=== PATIENT | female | born 2000 | race Caucasian/White ===

== ENCOUNTER 2021-07-11 09:11 | Emergency (ER) | payer BC, MEDICAID, SELFPAY ==
[2021-07-11 09:20] VITALS: BP 123/65; PULSE 81; RESP 18; TEMP 37; O2SAT 100; BMI 23.7
--- NOTE | 2021-07-11 10:37 | ED.SKABFB ---
HPI - Skin/Abscess/Foreign Bdy General Chief complaint: Skin/Abscess/Foreign Body Stated complaint: wart on finger Time Seen by Provider: 07/11/21 10:34 Source: patient Mode of arrival: ambulatory Limitations: no limitations History of Present Illness complaint: other (Wart to left hand index finger) Onset (ago): month(s) Tetanus up to date: unsure Location: L hand (Index finger) Pain Consistency: constant Relieving factors: none Exacerbating factors: none Context: none Associated symptoms: denies other symptoms Treatments prior to arrival: other (She reports she has tried multiple [id number] medication no symptomatic relief) Related Data Previous Rx's Medication Instructions Recorded salicylic acid 40 % topical patch 1 appl TOPICAL Q48H #25 ea 07/11/21 Allergies Allergy/AdvReac Type Severity Reaction Status Date / Time Penicillins [PCN] Allergy Unknown HIVES Unverified 07/08/20 19:53 Review of Systems Review of Systems: Constitutional : No Weight loss, No Fever, No Chills, No Night Sweats, No Fatigue, No Malaise ENT/Mouth : No Hearing loss, No Ear Pain, No Nasal Congestion, No Sinus Pain, No Hoarseness, No sore throat, No Rhinorrhea, No Swallowing Difficulty Eyes: No Eye Pain, No Swelling, No Redness, No Foreign Body, No Discharge, No Vision Changes Cardiovascular : No Chest Pain, No SOB, No Dyspnea on Exertion, No Orthopnea, No Edema, No Palpitations Respiratory : No Cough, No Sputum, No Wheezing, No Smoke Exposure, No Dyspnea Gastrointestinal : No Nausea, No Vomiting, No Diarrhea, No Constipation, No abdominal Pain, No Hematochezia, No Melena Genitourinary : no irregular bleeding, No Dysuria, No Urinary Frequency, No Hematuria, No Urinary Incontinence, No Urgency, No Flank Pain, No Urinary Flow Changes, No Hesitancy Musculoskeletal : No joint pain, No Myalgias, No Joint Swelling Skin : Positive skin lesion/wart, No rash Neuro : No Weakness, No Numbness, No Paresthesias, No Loss of Consciousness, No Dizziness, No Headache Psych : No Anxiety/Panic, No Depression, No SI/HI/AH/VH, No Social Issues, Heme/Lymph: No Bruising, No Bleeding,No Lymphadenopathy Endocrine : No Polyuria, No Polydipsia, No Temperature Intolerance Yes all other systems are reviewed and are negative [facility] Past Medical History Attestation statement: The following information was validated with the patient. Medical History No known health problems Social History Social History Advance Directives: No Advance Directives Information Provided: No Patient : No Physical Exam Vital Signs: Vital Signs: Last Vital Signs Temp 98.6 F 07/11/21 09:20 Pulse 81 07/11/21 09:20 Resp 18 07/11/21 09:20 BP 123/65 07/11/21 09:20 Pulse Ox 100 07/11/21 09:20 Body Mass Index 23.7 vital signs have been reviewed as normal and appeared to be correct. Blood pressure normal. Heart rate normal. Respiration rate normal. Temperature normal. Oxygen saturation normal. Appearance: Alert. Oriented X3. No acute distress. Head: Normal external exam. Normocephalic. Atraumatic. Eyes: PERRLA. EOMI. Conjunctiva and sclera normal. Eyelids normal. ENT: . Pharynx normal. Uvula midline. Moist mucous membranes. Neck: Normal inspection. Neck supple. FROM. CVS: Normal heart rate and rhythm. Respiratory: No respiratory distress. Painless inspiration. Back: Full range of motion noted. No rashes/lesion/induration/fluctuance or signs of infection noted. Skin: Skin warm and dry. Normal skin color. Normal skin turgor. No rashes/additional lesions only her wart that is in her left hand index finger noted. Extremities: Patient with warts to left hand index finger at the distal aspect no signs of infection. No purulent drainage noted. Extremities exhibit normal range of motion. Extremities nontender. Neuro: Oriented X 3. No motor deficit. No sensory deficit. Reflexes normal. Normal steady gait. No focal neuro deficits noted. Vascular: + radial pulses/+ 2 distal pedal pulses/+2 dorsalis pedis b/l. Normal cap refill. No cyanosis noted to upper extremity nails and lower extremity toes nails. Course Course Course Narrative: Patient with wart 2 left hand index finger distal aspect she has been trying multiple [id number]-[id number] medications over the past months and no symptomatic relief. Reports that she is currently here studying from [place] she does not have a primary care provider. Denies any other symptoms complaints or concerns at this time. On exam patient does have a wart no signs of infection. Will DC home with multiple PCP referral/numbers that she can contact and treatment for warts instructions return if any new or worsening symptoms. Patient understands agrees with this plan. MDM - Skin/Abscess/Foreign Bdy Medical Records Attestation: I reviewed the patient's medical records. Discharge Plan Discharge Clinical Impression: Viral wart on finger Patient Disposition: Home, Self-Care Instructions: Common Wart (ED) Prescriptions: New salicylic acid 40 % adhesive patch,medicated 1 appl topical Q48H Qty: 25 RF: 3 Referrals: [facility] [Provider Group] - 2 days [facility] [Provider Group] - 2 days [facility] [place] [facility] [Provider Group] - 2 days [facility] [Provider Group] - 2 days [facility] [place] [facility] [Provider Group] - 2 days Print Language: Andorran
== END 2021-07-11 10:51 | disposition home or self-care (01) ==
PROVIDERS: Emergency Provider Emergency Medicine Emergency Medical Services
DX: B07.9 Viral wart, unspecified (principal); Z79.899 Other long term (current) drug therapy
CPT/HCPCS: 99283

== ENCOUNTER 2021-08-29 11:53 | Emergency (ER) | payer BC, MEDICAID, SELFPAY ==
[2021-08-29 12:06] VITALS: BP 111/68; PULSE 89; RESP 16; TEMP 36.8; O2SAT 100; BMI 23.0
--- NOTE | 2021-08-29 13:51 | ED_ITS ---
HPI - General Adult General Chief complaint: General Medical Stated complaint: breast pain Time Seen by Provider: 08/29/21 13:49 Source: patient Mode of arrival: ambulatory Limitations: no limitations History of Present Illness HPI narrative: 20-year-old female came in for right breast pain evaluation. Pain started in the right breast about 2 weeks ago, progressively getting worse, pain is constant, described as moderate 5/10, nothing worsening the pain, nothing make it better, no other associated symptoms, no recent trauma to the breast, no family history of breast cancer or ovarian cancer, patient is taking contraceptive pills for contraception. No fever or chills. Related Data Previous Rx's Medication Instructions Recorded salicylic acid 40 % topical patch 1 appl TOPICAL Q48H #25 ea 07/11/21 Allergies Allergy/AdvReac Type Severity Reaction Status Date / Time Penicillins [PCN] Allergy Unknown HIVES Unverified 07/08/20 19:53 Review of Systems Review of Systems: All other systems are reviewed and are negative Constitutional: Reports as per HPI and Reports no additional constitutional complaints Eyes: Reports as per HPI and Reports no additional eye complaints Reports system reviewed and no additional complaints, except as documented Cardiovascular: Reports as per HPI and Reports no additional cardiovascular complaints Respiratory: Reports as per HPI and Reports no additional respiratory complaints Gastrointestinal: Reports as per HPI and Reports no additional gastrointestinal complaints Genitourinary: Reports no additional female genitourinary complaints Musculoskeletal: Reports no additional musculoskeletal complaints Skin/Breast: Reports system reviewed and no additional complaints, except as docu Psychiatric: Reports no additional psychiatric complaints Endocrine: Reports no additional endocrine complaints Hematologic/Lymphatic: Reports no additional hematologic/lymphatic complaints Allergic/Immunologic: Reports no additional allergic/immunologic complaints Reports system reviewed and no additional complaints, except as documented and Reports Abnormal speech present [facility] Past Medical History Medical History No known health problems Physical Exam Vital Signs: Vital Signs: Last Vital Signs Temp 98.2 F 08/29/21 12:06 Pulse 89 08/29/21 12:06 Resp 16 08/29/21 12:06 BP 111/68 08/29/21 12:06 Pulse Ox 100 08/29/21 12:06 Body Mass Index 23.0 Vital signs have been reviewed as appeared to be correct. Blood pressure normal. Heart rate normal. Respiration rate normal. Temperature normal. Oxygen saturation normal. Appearance: Alert. Oriented X3. No acute distress. Head: Normal external exam. Normocephalic. Atraumatic. No Garcia signs noted. No raccoon eyes noted Eyes: PERRLA. EOMI. Conjunctiva and sclera normal. Eyelids normal. ENT: TM's Normal. Pharynx normal. Uvula midline. Moist mucous membranes. No trismus noted. No drooling noted. No muffled voice noted. Neck: Normal inspection. Neck supple. FROM. No adenopathy. Thyroid Normal. No meningeal signs. No neck mass noted. CVS: Normal heart rate and rhythm. Heart sound normal. No murmurs noted. Pulses normal throughout. Respiratory: No respiratory distress. Painless inspiration. Breath sounds normal. No wheezes/rales/rhonchi noted. Chest nontender. No accessory muscle usage noted or decreased air movement noted. Breast exam: 2x2 cm cystic lesion on 11 O'clock are of right breast, tender and mobile, with no fluctuation. No lymph node is appreciated. Abdomen: Soft and nontender. Bowel sounds normal in all 4 quadrants. No distention noted. No organomegaly noted. No visible injury noted. Back: No CVA tenderness. Full range of motion noted. Skin: Skin warm and dry. Normal skin color. Normal skin turgor. No rashes/lesions/lacerations noted. Extremities: No lower extremity edema. Extremities exhibit normal range of motion. Extremities nontender. Neuro: Oriented X 3. Cranial nerve exam: II-XII are grossly intact No motor deficit. No sensory deficit. Reflexes normal. Course Course Course Narrative: 20-year-old female who does not have a primary doctor came in with right breast mass, unable to get breast ultrasound/mammogram from the emergency room, patient needs to find PCP to follow-up on this new right breast mass. Patient was given phone numbers for PCPs to contact from today. Discharge Plan Discharge Clinical Impression: Breast lump or mass Patient Disposition: Home, Self-Care Instructions: Breast Mass (ED) Additional Instructions: Call Adult primary care at [phone]. Call Family Medicine [phone] and make an appointment. Or call [phone] and make an appointment. Or try walk-in clinic at [phone] or Another walking clinic at [phone]. Prescriptions: No Action salicylic acid 40 % adhesive patch,medicated 1 appl topical Q48H Qty: 25 RF: 3 Referrals: Physician,None [Primary Care Provider] - 2 days Stand Alone Forms: Work/School Release Interventions: ED Discharge Assessment Last Done: 08/29/21 14:06 Discharge Date/Time: 08/29/21 14:16
--- NOTE | 2021-08-29 13:59 | PC.NURSE ---
this rn was present for breast exam. pt tolerated procedure well.
--- NOTE | 2021-08-29 14:05 | PC.NURSE ---
pt c/o lump under the skin to right breast at 10:00.
== END 2021-08-29 14:16 | disposition home or self-care (01) ==
PROVIDERS: Emergency Provider Emergency Medicine
DX: N64.4 Mastodynia (principal); N63.10 Unspecified lump in the right breast, unspecified quadrant
CPT/HCPCS: 99283

== ENCOUNTER 2021-08-29 15:10 | Outpatient (REF) | payer BC, MEDICAID, SELFPAY ==
--- NOTE | ~2021-08-29 | US_ITS ---
EXAMINATION: US DIAGNOSTIC ULTRASOUND BREAST, RIGHT CLINICAL INFORMATION: Pain lateral right breast noted by patient past 2 weeks. Palpable fullness noted at clinical exam, emergency department today. No discharge. No known family history breast cancer. Patient age 20. No prior breast imaging. COMPARISON: None. TECHNIQUE: Ultrasound right breast is targeted to the area of clinical concern outer quadrant. Patient is able to point to the area of concern at time of imaging. Grayscale imaging and color Doppler are performed without and with harmonics. Comparison imaging is performed outer left breast. FINDINGS: There is no focal suspicious finding. There is no cystic or solid mass, architectural abnormality, or duct ectasia. No skin thickening or edema tracking in soft tissue planes. No hyperemia on color Doppler. Results are discussed with the patient at time of visit. Results called to Dr. Mitchell in the emergency department at 1523 hours. Patient is to follow-up with primary care. US/US breast RT limited IMPRESSION: Unremarkable targeted right breast ultrasound. ASSESSMENT: BI-RADS 1: Negative RECOMMENDATION: Patient's right breast pain should be be managed based on the clinical impression. If a clinically palpable concern is present, further evaluation may be considered with surgical consult. Decision to proceed with biopsy should be based on clinical grounds and degree of clinical concern.
== END 2021-08-29 15:11 | disposition home or self-care (01) ==
LOC: HO.MAMMO 15:10
PROVIDERS: Visit Provider Emergency Medicine
DX: N64.4 Mastodynia (principal)
CPT/HCPCS: 76642